=== PATIENT | female | born 2000 | race Two or more races ===

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

== ENCOUNTER → 2020-12-27 | Outpatient (REF) | payer OTHER, SELFPAY | LOC: M LAB 22:06 | PROVIDERS: ATTEND Physician Assistant | DX: J03.90 Acute tonsillitis, unspecified (principal) ==

== ENCOUNTER 2025-08-11 17:18 | Observation (INO) | payer SELFPAY ==
[~2025-08-11] VITALS: Ht 175.3 cm; Wt 58.3 kg
[2025-08-11] MEDS ORDERED: NORG0.25 PO (17:27)
[2025-08-11 19:10] LABS: BASO # 0.0 10^3/uL (0.0-0.2); BASO % 0.1 % (0.0-1.0); EOS # 0.0 10^3/uL (0.0-0.5); EOS % 0.0 % (0.0-3.0); LYMPH # 1.6 10^3/uL (1.5-5.0); LYMPH % 9.0 % (24.0-44.0); MONO # 0.7 10^3/uL (0.0-0.8); MONO % 3.9 % (2.0-8.0); NEUTROPHILS # 15.0 10^3/uL (1.5-8.5); NEUTROPHILS % 86.6 % (36.0-66.0); PLATELET COUNT, AUTOMATED 395 10^3/uL (150-450)
[2025-08-11 19:41] LABS: HCG, SERUM QUALITATIVE NEGATIVE (NEGATIVE)
[2025-08-11 19:42] LABS: ALT/SGPT 12 U/L (7.0-40); AST/SGOT 17 U/L (<34); CALCIUM LEVEL 9.5 MG/DL (8.5-10.1); CARBON DIOXIDE LEVEL 25 MMOL/L (20-31); CHLORIDE LEVEL 99 MMOL/L (98-107); CREATININE FOR GFR 0.68 MG/DL (0.55-1.30); GLOMERULAR FILTRATION RATE > 90.0 (>60); POTASSIUM SERUM 4.3 MMOL/L (3.5-5.1); SODIUM LEVEL 137 MMOL/L (136-145)
[2025-08-12] MEDS ORDERED: ISOVUE-370 76% 100 ML VIAL As Ordered ONE (00:46)
[2025-08-12] MEDS: NS (Normal Saline) 0.9% 1,000 ML IV ONE (01:42)
[2025-08-12] MEDS: ONDANSETRON 4MG/2ML VIAL IV ONE (01:42)
[2025-08-12] MEDS: KETOROLAC 30 MG/ML 1 ML VIAL IV ONE (01:43)
[2025-08-12 03:03] LABS: KETONE, URINE AUTO RFX 1+ mg/dL (NEGATIVE); LEUKOCYTE ESTERASE UR AUTO RFX NEGATIVE (NEGATIVE); NITRITE, URINE AUTO RFX NEGATIVE (NEGATIVE); RBC, URINE AUTO RFX 5 /HPF (0-3); SQUAM EPITHELIAL CELL UR AURFX 3 /HPF (0-6); WBC, URINE AUTO RFX 8 /HPF (0-3)
[2025-08-12] MEDS: MORPHINE 2 MG/ML 1 ML VIAL IV ONE (03:20)
[2025-08-12] MEDS ORDERED: cefTRIAXone SOD 1 GM in DEXTROSE 5% (D5W) ADV/MINI-BAG 50 ML IV ONE (03:30)
[2025-08-12] MEDS ORDERED: PERCOCET 5MG/325MG TAB PO PRN (03:50)
[2025-08-12] MEDS ORDERED: ONDANSETRON 4MG/2ML VIAL IV PRN (03:50)
[2025-08-12] MEDS ORDERED: MORPHINE 2 MG/ML 1 ML VIAL IV PRN (03:50)
[2025-08-12] MEDS: NS (Normal Saline) 0.9% 1,000 ML IV SCH (04:45)
[2025-08-12] MEDS: cefTRIAXone SOD 2 GM in DEXTROSE 5% (D5W) ADV/MINI-BAG 50 ML IV SCH (04:55)
[2025-08-12 05:19] VITALS: BP 148/78; TEMP 97.6; O2SAT 97
[2025-08-12] MEDS ORDERED: HOME MED LIST COMPLETE! XX SCH (06:25)
[2025-08-12] MEDS ORDERED: MORPHINE 4 MG/ML 1 ML VIAL IV PRN (07:00)
[2025-08-12 08:22] LABS: BASO # 0.0 10^3/uL (0.0-0.2); BASO % 0.1 % (0.0-1.0); EOS # 0.0 10^3/uL (0.0-0.5); EOS % 0.0 % (0.0-3.0); LYMPH # 1.6 10^3/uL (1.5-5.0); LYMPH % 9.1 % (24.0-44.0); MONO # 0.8 10^3/uL (0.0-0.8); MONO % 4.6 % (2.0-8.0); NEUTROPHILS # 15.0 10^3/uL (1.5-8.5); NEUTROPHILS % 85.6 % (36.0-66.0); PLATELET COUNT, AUTOMATED 396 10^3/uL (150-450)
[2025-08-12 08:53] LABS: CALCIUM LEVEL 8.8 MG/DL (8.5-10.1); CARBON DIOXIDE LEVEL 22 MMOL/L (20-31); CHLORIDE LEVEL 104 MMOL/L (98-107); CREATININE FOR GFR 0.72 MG/DL (0.55-1.30); GLOMERULAR FILTRATION RATE > 90.0 (>60); MAGNESIUM LEVEL 1.8 MG/DL (1.8-2.4); POTASSIUM SERUM 4.3 MMOL/L (3.5-5.1); SODIUM LEVEL 138 MMOL/L (136-145)
[2025-08-12] MEDS: ENOXAPARIN 40 MG/0.4 ML SYRINGE (J1650 PER 10MG) SC SCH (09:00)
[2025-08-12] MEDS: ONDANSETRON 4MG/2ML VIAL IV PRN (09:11)
[2025-08-12 09:25] LABS: HIV 1&2 SCREEN NEGATIVE (NEGATIVE)
[2025-08-12 12:00] VITALS: BP 111/57; TEMP 99.4; O2SAT 98
[2025-08-12 13:29] LABS: Trichomonas vaginalis (AMP) NOT DETECTED (NEGATIVE)
[2025-08-12 13:53] LABS: GC DNA AMPLIFICATION NEGATIVE (NEGATIVE)
[2025-08-12 19:44] VITALS: BP 117/74; TEMP 98.3; O2SAT 97
[2025-08-13 04:02] VITALS: BP 109/68; TEMP 97.3; O2SAT 97
[2025-08-13 06:02] LABS: BASO # 0.0 10^3/uL (0.0-0.2); BASO % 0.4 % (0.0-1.0); EOS # 0.1 10^3/uL (0.0-0.5); EOS % 1.3 % (0.0-3.0); LYMPH # 3.3 10^3/uL (1.5-5.0); LYMPH % 36.1 % (24.0-44.0); MONO # 0.7 10^3/uL (0.0-0.8); MONO % 7.4 % (2.0-8.0); NEUTROPHILS # 5.0 10^3/uL (1.5-8.5); NEUTROPHILS % 54.4 % (36.0-66.0); PLATELET COUNT, AUTOMATED 321 10^3/uL (150-450)
[2025-08-13 06:37] LABS: CALCIUM LEVEL 7.9 MG/DL (8.5-10.1); CARBON DIOXIDE LEVEL 25 MMOL/L (20-31); CHLORIDE LEVEL 105 MMOL/L (98-107); CREATININE FOR GFR 0.77 MG/DL (0.55-1.30); GLOMERULAR FILTRATION RATE > 90.0 (>60); MAGNESIUM LEVEL 1.7 MG/DL (1.8-2.4); POTASSIUM SERUM 4.0 MMOL/L (3.5-5.1); SODIUM LEVEL 140 MMOL/L (136-145)
[2025-08-13 06:53] LABS: CA 125 5.0 U/ML (<35)
[2025-08-13] MEDS: MAG SULF 1GM/100ML (MAG RUN) 1 GM in IV 1 EA IV ONE (08:08)
[2025-08-13] MEDS ORDERED: CEFD1CAP9 PO (09:10)
[2025-08-13] MEDS ORDERED: PROB250C PO (09:10)
[2025-08-18 18:52] LABS: HE4 46 pmol/L
== END 2025-08-13 10:45 | disposition home or self-care (01) ==
LOC: M ED 17:18 → M ED INP 17:19 → M MS4PR 08-12 05:23
PROVIDERS: ADMIT Internal Medicine; ATTEND Internal Medicine
DX: N10 Acute pyelonephritis (principal); N83.291 Other ovarian cyst, right side; F12.10 Cannabis abuse, uncomplicated; Z79.2 Long term (current) use of antibiotics; Z79.899 Other long term (current) drug therapy
CPT/HCPCS: 36415; 74177; 76856; 80048; 80053; 81001; 83690; 83735; 84703; 85025; 86304; 86305; 86780; 87040; 87086; 87389; 87486; 87581; 87633; 87661; 87798; 87810; 87850; 93976; 96361; 96365; 96366; 96375; 96376; 99284; J0696; J1885; J2405; J2765; J3475; Q9967